=== PATIENT | female | born 1930 | race Caucasian/White ===

== ENCOUNTER → 2016-05-10 | Outpatient (CLI) | payer MEDICARE, BC ==
[~2016-05-10] MED LIST: ACETAMINOPHEN500 MG PO; ALLOPURINOL300 MG PO; AMIODARONE HCL200 MG PO; ASPIRIN EC81 MG PO; ASPIRIN LO-DOSE81 MG PO; COREG 3.1253.125 MG PO; COREG6.25 MG PO; ELIQUIS2.5 MG PO; K-TAB 10MEQ10 MEQ PO; LASIX20 M1 PO; LEVOTHROID (S100 MCG PO; LEVOTHROID (S137 MCG PO; LEVOTHROID (SY50 MCG PO; LEVOTHROID(SYN75 MCG PO; LISINOPRIL2.5 MG PO; PROTONIX40 MG PO; SODIUM BICAR325 MG PO; XARELTO15 MG PO
== END | disposition disaster alternative care site (69) ==
LOC: LGSMG 16:20
DX: I12.9 Hypertensive chronic kidney disease with stage 1 through stage 4 chronic kidney disease, or unspecified chronic kidney disease (principal); N18.4 Chronic kidney disease, stage 4 (severe); E03.9 Hypothyroidism, unspecified; I50.22 Chronic systolic (congestive) heart failure; M1A.9XX1 Chronic gout, unspecified, with tophus (tophi); Z79.01 Long term (current) use of anticoagulants; Z92.29 Personal history of other drug therapy; E21.3 Hyperparathyroidism, unspecified; E87.6 Hypokalemia